=== PATIENT | female | born 1950 | race African-American/Black ===

== ENCOUNTER 2025-11-09 19:08 | Emergency (ER) | payer OTHER ==
[~2025-11-09] VITALS: Ht 154.9 cm; Wt 82.0 kg
[2025-11-09 19:13] VITALS: O2SAT 99
[2025-11-09] MEDS: LACTATED RINGERS 1,000 ML IV STA (19:32)
[2025-11-09] MEDS: ONDANSETRON HCL 4MG/2ML INJ IV ONE (19:45)
[2025-11-09 20:19] LABS: BASOPHILS % 0.6 % (0.0-2.0); EOSINOPHILS % 0.2 % (0.0-5.0); HEMATOCRIT. 41.7 % (36.0-48.0); HEMOGLOBIN. 13.6 g/dL (12.0-16.0); LYMPHOCYTES % 14.6 % (20.0-50.0); MEAN PLATELET VOLUME 7.8 fl (7.4-10.4); MONOCYTES % 5.1 % (2.0-8.0); NEUTROPHILS % 79.5 % (40.0-76.0); PLATELET 287 x1000/uL (130-400); RED BLOOD CELL COUNT 4.50 mill/uL (4.2-5.4); RED CELL DISTRIBUTION WIDTH 13.8 % (11.6-14.6)
[2025-11-09 20:31] LABS: CREATININE 1.1 mg/dL (0.6-1.0); UREA NITROGEN BLOOD 10 mg/dL (9-23)
[2025-11-09 20:32] LABS: PROTEIN TOTAL 7.8 g/dL (6.0-8.3)
[2025-11-09 20:33] LABS: ASPARTATE AMINOTRANSFERASE 19 IU/L (<34); BILIRUBIN DIRECT 0.3 mg/dL (<=3.0); BILIRUBIN TOTAL 1.2 mg/dL (0.1-1.0)
[2025-11-09 22:04] VITALS: BP 139/73; PULSE 58; RESP 18; TEMP 37; O2SAT 100
== END 2025-11-09 22:06 | disposition home or self-care (01) ==
LOC: ER 19:08
DX: R11.2 Nausea with vomiting, unspecified (principal); K59.00 Constipation, unspecified
CPT/HCPCS: 99283; 80076; 80048; 83690; 85025; 36415; J7120